=== PATIENT | male | born 1965 | race African-American/Black ===

== ENCOUNTER 2021-02-09 08:42 | Emergency (ER) | payer SELFPAY ==
[2021-02-09 10:49] LABS: #Basophils 0.1 thou/uL (0.0-0.2); #Eosinphils 0.1 thou/uL (0.0-0.7); #Lymphocytes 1.7 thou/uL (1.20-3.40); #Monocytes 0.6 thou/uL (0.11-0.59); #Neutrophils 2.7 thou/uL (1.40-6.50); %Basophils 1.7 % (0.0-1.0); %Eosinophils 1.9 % (0.0-10.0); %Lymphocytes 32.5 % (21.0-51.0); %Neutrophils 52.9 % (42.0-75.0); Hemoglobin 15.6 g/dL (14.0-18.0); Mean Corpuscular HGB CONC 33.5 g/dL (32.0-36.0); Mean Corpuscular Volume 95.4 fL (78.0-98.0); Mean Platelet Volume 7.4 fL (7.4-10.4); Platelet Count 129 thou/uL (130-400); RBC Distribution Width 11.3 % (11.5-14.5); Red Blood Cell (RBC) Count 4.87 mill/uL (4.70-6.10); White Blood Cell (WBC) Count 5.1 thou/uL (4.8-10.8)
[2021-02-09 11:10] LABS: ALT (SGPT) 122 U/L (8-55); AST (SGOT) 110 U/L (5-34); Albumin 3.7 g/dL (3.5-5.0); Alkaline Phosphatase 141 U/L (40-110); Anion Gap 14 mmol/L (10-20); BUN (Urea Nitrogen) 16 mg/dL (8.4-25.7); Bilirubin, Total 1.1 mg/dL (0.2-1.2); Calc. Creatinine Clearance 0 mL/min (70-130); Calcium 9.1 mg/dL (7.8-10.44); Carbon Dioxide 24 mmol/L (22-29); Chloride 101 mmol/L (98-107); Globulin 4.9 g/dL (2.4-3.5); Glucose 99 mg/dL (70-105); Lipase 39 U/L (8-78); Potassium 3.8 mmol/L (3.5-5.1); Protein, Total 8.6 g/dL (6.0-8.3); Sodium 135 mmol/L (136-145)
== END 2021-02-09 12:25 | disposition home or self-care (01) ==
LOC: ERS 08:42
DX: R10.9 Unspecified abdominal pain (principal); R05 Cough; F17.210 Nicotine dependence, cigarettes, uncomplicated
CPT/HCPCS: 71045; 80053; 83690; 85025

== ENCOUNTER 2024-12-07 11:08 | Emergency (ER) | payer SELFPAY ==
[2024-12-07] MEDS ORDERED: Ipratropium/Albuterol 3 ML NEB ONE (12:48)
[2024-12-07] MEDS ORDERED: Ipratropium Bromide 2.5 ml Neb ONE (12:48)
[2024-12-07] MEDS ORDERED: Magnesium 2 GM/50 ML BAG (IN WATER) ONE (13:04)
[2024-12-07] MEDS ORDERED: Dexamethasone 10 MG/ML VIAL ONE (13:04)
[2024-12-07] MEDS ORDERED: cefTRIAXone (ROCEPHIN) 2 GM VIAL ONE (13:04)
[2024-12-07] MEDS ORDERED: Sodium Chloride 0.9% 100 ML ONE (13:05)
[2024-12-07 13:37] LABS: #Basophils Less than 0.03 10x3/uL (0.0-0.2); #Eosinophils Less than 0.03 10x3/uL (0.0-0.7); %Basophils 0.1 % (0.0-1.0); %Eosinophils 0.3 % (0.0-10.0); %Lymphocytes 23.1 % (21.0-51.0); %Monocytes 9.2 % (0.0-10.0); %Neutrophils 66.8 % (42.0-75.0); Hematocrit 41.3 % (42.0-52.0); Hemoglobin 14.3 g/dL (14.0-18.0); Mean Corpuscular HGB CONC 34.6 g/dL (32.0-36.0); Mean Corpuscular Hemoglobin 32.4 pg (27.0-31.0); Mean Corpuscular Volume 93.7 fL (78.0-98.0); Mean Platelet Volume 11.3 fL (7.4-10.4); Platelet Count 102 10x3/uL (130-400); RBC Distribution Width 12.3 % (11.5-14.5); Red Blood Cell (RBC) Count 4.41 mill/uL (4.70-6.10)
[2024-12-07 14:31] LABS: ALT (SGPT) 61 U/L (Less than 45); AST (SGOT) 91 U/L (11-34); Albumin 2.7 g/dL (3.1-4.5); Alkaline Phosphatase 141 U/L (40-110); Anion Gap 16 mmol/L (10-20); BUN (Urea Nitrogen) 12 mg/dL (8.4-25.7); Calc. Creatinine Clearance 0 mL/min (70-130); Calcium 8.7 mg/dL (7.8-10.44); Carbon Dioxide 21 mmol/L (23-31); Chloride 105 mmol/L (98-107); Estimated GFR 104; Globulin 5.5 g/dL (2.4-3.5); Glucose 93 mg/dL (80-115); Potassium 3.6 mmol/L (3.5-5.1); Protein, Total 8.2 g/dL (5.8-8.1); Sodium 138 mmol/L (136-145)
[2024-12-07 14:34] LABS: Troponin I Less than 0.010 ng/mL (< 0.028)
== END 2024-12-07 14:30 | disposition home or self-care (01) ==
LOC: ERS 11:08
DX: J18.9 Pneumonia, unspecified organism (principal); F17.210 Nicotine dependence, cigarettes, uncomplicated
CPT/HCPCS: 36415; 71045; 80053; 83605; 84484; 85025; 87040; 87428; 93005; 96365; 96368; 96375; J0696; J1100; J3475; J7620; J7644